=== PATIENT | male | born 1955 | race Caucasian/White ===

== ENCOUNTER 2024-04-06 02:28 | Inpatient (IN) | payer MEDICARE, OTHER, SELFPAY ==
[2024-04-05 23:53] VITALS: BP 153/85
[2024-04-06] VITALS (13 sets, daily range): BP systolic 106–152; BP diastolic 55–88; BMI 23.5; BMI 23.2
--- NOTE | 2024-04-06 00:23 | ED.GENMED ---
History of Present Illness
General
Chief Complaint: Rectal Bleeding
Source: patient and spouse
Time Seen by Provider: 04/06/24 00:13
History of Present Illness
History of Present Illness:
68-year-old male with past medical history of hyperlipidemia, diverticular bleed 6 months ago which was repaired with 2 clips at [facility] presenting to the emergency department for evaluation after experiencing some lower abdominal
discomfort earlier this evening and then proceeded to have 1 episode of loose stool intermixed with bright red blood. Patient states that he became concerned due to the last time he had this GI bleeding which ultimately required him having 7 units
of packed red blood cells transfused and proceeded to syncopized and reports may have undergone cardiac arrest due to hypovolemic shock. Patient reports that since his discharge from the hospital 6 months ago he has been doing well without any
issues. Presently still notes the slight discomfort in the lower abdomen but otherwise asymptomatic. Denies any lightheadedness/dizziness/weakness/fatigue, fevers or infectious symptoms, urinary symptoms, abnormal bruising, abnormal weight loss or
gain. Social history was noted for an occasional alcoholic beverage but otherwise unremarkable.
Past History
Past History
ED Past Medical History: Hypercholesterolemia and Other (Diverticulosis with previous diverticular bleed)
ED Past Surgical History: Other
Social History
Tobacco: Non-smoker
Alcohol: Occasional
Drug: None
Personal:
Living: with family
Review of Systems
Review of Systems
All Other Systems: ROS reviewed and negative except as documented in HPI and ROS
Phy Exam
Physical Exam
Physical Exam:
GENERAL: Alert , in no apparent distress
EYE: clear conjunctiva b/l
HEAD: NCAT
ENT: mmm.
CARDIAC: Regular rate and rhythm .
LUNGS: Clear breath sounds bilaterally, no acute respiratory distress, no wheezes/rales/rhonchi
ABDOMEN: Soft, without focal tenderness, no r/g, no cvat
RECTAL EXAM: Chaperoned by ED ESME Guzman -no stool but there is bright red blood, no external hemorrhoids
NEUROLOGICAL: Alert and oriented
SKIN: Warm and dry, skin intact.
MUSCULOSKELETAL:, well perfused.
PSYCH: Normal and appropriate interaction.
Scores
Heart Failure Risk
Heart Failure Risk Score: Not Applicable
Heart Score for Chest Pain Patients
STEMI patient?: Not applicable
Withdrawal Assessment of Alcohol
Withdrawal Assessment Completed?: Not applicable
Course
Orders/Labs/Results
Orders:
Orders
04/06/24 00:29
Type+Screen Urgent
Complete Blood Count/With Diff Urgent
Comprehensive Metabolic Panel Urgent
PTT Urgent
Prothrombin Time Urgent
04/06/24 01:09
ABO2 Urgent
BBK Wristband Number:
Associate notified that ABO2 has been ordered: [id number]
Date: 04/06/24
Time: 00:45
Dike Supervisor ID: [id number]
Abnormal Lab Results
04/06/24
00:29
RBC 4.08 L 10^6/uL
(4.70-6.10)
Hgb 12.3 L g/dL
(13.0-18.0)
Hct 38.0 L %
(39.0-52.0)
MCHC 32.4 L g/dL
(33.0-37.0)
BUN 26 H mg/dl
(9-20)
Glucose 110 H mg/dl
(70-99)
Total Bilirubin 0.1 L mg/dl
(0.2-1.3)
04/06/24 00:29
04/06/24 00:29
Vital Signs
Initial and Last Documented VS:
Initial Vital Signs
Temp Pulse Resp BP Pulse Ox
98.7 F 84 16 153/85 100
04/05/24 23:53 04/05/24 23:53 04/05/24 23:53 04/05/24 23:53 04/05/24 23:53
Last Documented Vital Signs
Temp Pulse Resp BP Pulse Ox
98.7 F 78 13 130/85 98
04/05/24 23:53 04/06/24 01:15 04/06/24 01:15 04/06/24 01:00 04/06/24 01:15
MDM/Problems Addressed
Differential Diagnosis Includes:
Diverticular bleed, internal hemorrhoids, less concern for an upper GI bleeding source, anemia
MDM/Problems Addressed:
68-year-old male presenting to the emergency department for evaluation of some mild ralf discomfort associated with 1 episode of bright red blood during a bowel movement earlier this evening. Recent history of a diverticular bleed status post
clipping done at [facility]. Patient needed significant amount of blood products during that time. Currently hemodynamically stable and in no acute distress. Will check labs. Patient advised if he is to have any further bleeding to notify staff so
we can obtain a stat CT angio of the abdomen to see if there is any identified areas of bleeding. Anticipate admission given his recent history for hemoglobin trending and close monitoring.
*Pulse Oximetry
Patient hypoxic: no
*Gravel Screener Interpretation
Rate: normal
Rhythm: sinus
*Critical Care Note
Total Time (30-74mins, 75-104mins- exclusive of procedures): Not Applicable
Patient Management
Discussion with other providers: Hospitalist
Escalation/DeEscalation of care consider admission/obs:
Patient's lab work so far is reassuring with a hemoglobin of 12.3. He remains hemodynamically stable. He still reports that he has some mild discomfort in the lower part of his abdomen. Given his recent medical history with the previous GI bleed
requiring significant amount of transfusion I do believe it would be in patient's best interest to be admitted and observed with repeat labs in the morning. Patient and are in agreement with this plan. Hospitalist team accepts for continued
evaluation and treatment.
ED Attending Note
-
Portions of this chart may have been created with voice recognition software.� Occasional wrong word or��sound alike� substitutions may have occurred due to the inherent limitations of voice recognition software.
Discharge Plan
Departure
Patient Disposition: Admit
Date of Disposition: 04/06/24
Time of Disposition: 01:18
Presentation/result/management discussed w/ accepting MD/DO: Hospitalist
Discharge Problem:
Acute gastrointestinal bleeding
Referrals:
UNKNOWN - PT DOES,NOT KNOW [Family Provider] -
Interventions
Interventions:
*Risk Screen - Suicide Last Done: 04/06/24 00:28
*General Assessment Last Done: 04/05/24 23:53
*Neglect/Abuse Screening Last Done: 04/06/24 00:28
ED- Fall Risk Assessment Last Done: 04/06/24 00:33
*ED COVID-19 Vaccine History Last Done: 04/05/24 23:53
MY-Igbxvf-Bknhbhpejf Assessment Last Done: 04/06/24 00:31
ED- Cardiac Assessment Last Done: 04/06/24 00:31
ED- Pulmonary Assessment Last Done: 04/06/24 00:31
Discharge Date and Time
Print Language: MONTSERRATIAN
[2024-04-06 00:54] LABS: % Basophils 0.6 % (0-2); % Immature Granulocytes 0.4 % (0-0.5); % Lymphocytes 32.7 % (20.5-51.1); % Monocytes 9.3 % (1.7-9.3); Absolute Eosinophils 0.1 10^3/uL (0-0.7); Absolute Lymphocytes 1.8 10^3/uL (1.2-3.4); Absolute Monocytes 0.5 10^3/uL (0.1-0.6); Hemoglobin 12.3 g/dL (13.0-18.0); Mean Corp Hgb Conc. 32.4 g/dL (33.0-37.0); Mean Corpuscular Hgb 30.1 pg (27.0-31.0); Mean Corpuscular Volume 93.1 fL (80.0-94.0); Mean Platelet Volume 10.3 fL (7.4-10.4); Nucleated Red Blood Cells % 0 % (-); Platelet Count 183 10^3/uL (130-400); Red Blood Cell Count 4.08 10^6/uL (4.70-6.10); Red Cell Dist. Width 13.4 % (11.5-14.5); White Blood Cell Count 5.4 10^3/uL (4.8-10.8)
[2024-04-06 00:56] LABS: ALT (SGPT) 23 U/L (0-50); AST (SGOT) 27 U/L (17-59); Albumin 4.3 g/dl (3.5-5.0); Alkaline Phosphatase 93 U/L (38-126); Blood Urea Nitrogen 26 mg/dl (9-20); Calcium 9.1 mg/dl (8.4-10.2); Carbon Dioxide 28 mmol/L (22-30); Chloride 102 mmol/L (98-107); Estimated Creatinine Clearance 64 ml/min; Glucose 110 mg/dl (70-99); Potassium 4.5 mmol/L (3.5-5.1); Sodium 139 mmol/L (135-145); Total Bilirubin 0.1 mg/dl (0.2-1.3); Total Protein 6.3 g/dl (6.3-8.2); eGFR > 60.00
[2024-04-06 00:57] LABS: PT 13.7 Sec (11.4-14.6)
[2024-04-06 00:58] LABS: APTT 31.1 Sec (23.4-35.0)
--- NOTE | 2024-04-06 02:03 | HPS.HSE ---
Family Physician
-
Family Physician: NOT KNOW UNKNOWN - PT DOES
Chief Complaint
-
Bright red blood per rectum
History of Present Illness
This is a 68-year-old male with past medical history of diverticular bleed 6 months ago presents to the emergency department with episode of bloody bowel movement that started approximately 3 hours prior to arrival in the ED.
Patient reports that he had an episode of rectal bleeding about 6 months ago. He required several units of packed red blood cells and ultimately had a colonoscopy and had 2 clips placed in the descending colon/sigmoid colon for treatment. He has
not had no episodes since then. Patient has not had any follow-up colonoscopy or surgery. He denies any prior bleeding. He is not currently taking any NSAIDs, aspirin or blood thinners. Patient reports sudden onset of symptoms without any
prodromal abdominal pain nausea or vomiting. He denies fevers or chills. He reported that he had a bowel movement after dinner that was frankly bloody and continued to have some abdominal gurgling and given his prior history decided to come to the
ED. He denies feeling lightheaded or dizzy. He denies having any chest pain or palpitations.
In the ED the patient was afebrile, blood pressure was stable at 130/83 with a pulse of 78. He is hemoglobin was 12.3 INR was 1.0 electrolytes BUN/creatinine were within normal limits.
Medical History
Past Medical History
Past Medical History: Reports Hypercholesterolemia and Other (Diverticulosis, diverticular bleeding)
Past Surgical History: Reports Other (Bilateral hernia repairs)
Social History
Tobacco: Non-smoker
Alcohol: Occasional
Drug: None
Personal:
Living: With Family
Family History
Family History: Not pertinent
Allergies / Home Medications
Allergies reflects when Allergies were last updated in [facility].
Home Medications with original date entered in [facility]
Allergy/Medication List:
Allergies
Allergy/AdvReac Type Severity Reaction Status Date / Time
aspirin Allergy Unknown Verified 04/05/24 23:59
Atorvastatin 10mg tablet, 10mg by mouth daily
Review of Systems
-
History Source: Patient and Family
Constitutional: Reports No Symptoms
EENT: Reports No Symptoms
Respiratory: Reports No Symptoms
Cardiac: Reports No Symptoms
Abdomen/GI: Reports Bloody Stools
: Reports No Symptoms
Musculoskeletal: Reports No Symptoms
Skin: Reports No Symptoms
Neurological: Reports No Symptoms
Endocrine: Reports No Symptoms
Hematologic/Lymphatic: Reports No Symptoms
Psych: Reports No Symptoms
Physical Exam
Vital Signs
Vital Signs
Temp Pulse Resp BP Pulse Ox
98.7 F 75 11 152/86 97
04/05/24 23:53 04/06/24 01:45 04/06/24 01:45 04/06/24 01:30 04/06/24 01:45
Physical Exam
General: Well Developed, Well Nourished, No Apparent Distress and Comfortable
HEENT: NormoCephalic, Anicteric, Moist mucous membranes and Atraumatic
Respiratory: Clear
Cardiac: S1/S2 and Regular Rhythm
Breast: Deferred by me
GI: Soft, Non Tender, Non Distended and Normal Bowel Sounds
Rectal: Red
Genito-urinary: Deferred by me
Musculoskeletal: No Clubbing, No Cyanosis and No Edema
Skin: Warm
Neuro: AO x 3
Hematologic/Lymphatic: No Lymphadenopathy
Psych: Calm
Laboratory Results
-
04/06/24 00:29
04/06/24 00:29
Laboratory Results
PT 13.7 Sec (11.4-14.6) 04/06/24 00:29
INR 1.00 04/06/24 00:29
APTT 31.1 Sec (23.4-35.0) 04/06/24 00:29
Total Bilirubin 0.1 mg/dl (0.2-1.3) L 04/06/24 00:29
AST 27 U/L (17-59) 04/06/24 00:29
ALT 23 U/L (0-50) 04/06/24 00:29
Alkaline Phosphatase 93 U/L (38-126) 04/06/24 00:29
Data Reviewed
-
Old Records: Reviewed
Impression/Plan
-
IMPRESSION:
68-year-old with history of diverticular bleeding and hemorrhoids presents to the emergency department with 1 episode of bloody bowel movement. In the ED he was found to have nathan blood in the vault without any stool. Has been with diarrhea. No
signs of acute infection. Patient is not on any anticoagulants or antiplatelets. Had a history of diverticular bleed 6 months ago for which she presented at [facility] and required 7 units of blood transfusion and colonoscopy with placement
of clips.
PLAN:
1. Rectal bleeding - Given past history, suggest diverticular bleed. HD stable. Hgb 12.3. No tachycardia. No bleeding since first episode but BM appears pendings.
- admit to telemetry
- if repeat episode of blood bm, will get CT GI bleeding scan
- NPO for now with clear ok
- trend h/h
- type and screen
- GI consult in am
DVT PPX - SCDs
Code Status - Full Code
--- NOTE | 2024-04-06 03:48 | VATNOTE ---
PT STABLE AT THIS TIME WITH H/H 12.3/38.1. NO IV THERAPY REQUIRING MORE THAN ONE IV ACCESS. VAT TO MONITOR.
[2024-04-06] MEDS: D5/0.45%NACL 1000 IV (04:18)
[2024-04-06 05:59] LABS: Hematocrit 35.8 % (39.0-52.0); Hemoglobin 12.1 g/dL (13.0-18.0); Mean Corp Hgb Conc. 33.8 g/dL (33.0-37.0); Mean Corpuscular Hgb 31.3 pg (27.0-31.0); Mean Corpuscular Volume 92.5 fL (80.0-94.0); Mean Platelet Volume 10.8 fL (7.4-10.4); Platelet Count 175 10^3/uL (130-400); Red Blood Cell Count 3.87 10^6/uL (4.70-6.10); Red Cell Dist. Width 13.4 % (11.5-14.5); White Blood Cell Count 6.8 10^3/uL (4.8-10.8)
[2024-04-06 06:27] LABS: Blood Urea Nitrogen 22 mg/dl (9-20); Calcium 8.8 mg/dl (8.4-10.2); Carbon Dioxide 26 mmol/L (22-30); Chloride 104 mmol/L (98-107); Estimated Creatinine Clearance 71 ml/min; Glucose 116 mg/dl (70-99); Potassium 4.9 mmol/L (3.5-5.1); Sodium 141 mmol/L (135-145); eGFR > 60.00
--- NOTE | 2024-04-06 10:06 | CON.GI ---
Addendum entered and electronically signed by JESSY Salgado 04/06/24 16:06:
Saw patient for a second time as he was concerned about his bleeding. He has had 1 BM that was brown mixed with blood followed by 2 more which were approximately 400 cc. Patient just had a smear of BRB. Patient is without any pain. VSS. Hgb 11.1.
Discussed with patient while in the room with Auditor/Quality. CTA from [place] obtained with prior positive CTA in hepatic flexure, however attempted IR intervention without active bleed. Will obtain [facility] records as he states he 'Coded twice'.
Obtained blood consent now, obtained IV team for second line, patient already has 18g in left forearm. Will get type and screeen in case blood products necessary. RN is already measuring all BM/bleeding. Hgb q 6 hrs. Will order CTA if with active
bleeding.
Addendum entered and electronically signed by Mehnaz Weaver Do, MD 04/06/24 12:40:
I saw and examined the patient.
The STAFF PSYCHIATRIST's note was reviewed and I agree with the note.
Comment: Dima is a 68yo M with h/o HTN and diverticular bleeding 09/2023 s/p 7units PRBC transfusion who presents for recurrent painless hematochezia. Did lift heavy groceries day prior. He does have h/o constipation for which he uses fiber daily
basis. Vitals stable. Exam NTTP, NABS. Labs reviewed stable Hbg 12 to 12.
Impression
- Painless hematochezia
ddx includes diverticular, hemorrhoidal vs ectasia
- Constipation
- Hyperlipidemia
Recommendations
- Serial H/H
- Monitor stool output
- >80% of diverticular bleeding resolves without intervention
- 2 large bore IVs
- Given stability of Hbg would observe. If there is hemodynamic instability and or more significant bloody output consider CTA vs repeat colonoscopy
Will follow with you. Above d/w hospitalist and RN
Original Note:
Consultation
-
Date/Time Consultation Requested: 04/06/2024 0341
Date/Time Consultation Performed: 04/06/2024 1007
Requesting Provider: Dr. Garcia
Performing Provider: Dr. Kramer/JESSY Maloney
Reason for Consultation: Rectal Bleed
Medical History
Chief Complaint / HPI
Chief Complaint: Rectal bleed
History of Present Illness:
68-year-old man with past medical history of hyperlipidemia, diverticular bleed (September 2023 [facility]) otherwise healthy presents to the emergency room last evening with episode of brown loose stools with bright red blood. Asked to evaluate
for the same. The patient states that he was hospitalized at [facility] in September 2023 after having episode of abdominal cramping with bright red blood. At that time he required multiple blood transfusions and colonoscopy performed at
that time that showed blood within the entire colon. Edema in the ileocecal valve that was biopsied. Inverted diverticula with possible bleeding stigmata that was clipped in the ascending colon. Moderate diverticulosis throughout the entire
colon. The patient states he was discharged and his hemoglobin was improved. He does not know the results of his hemoglobin after discharge. He states he had uneventful issues over the summer. Yesterday he was grocery shopping and was lifting
heavy groceries as well as caring a ham and turkey at the same time. Last evening he had dinner and he woke up around 11 PM with the urge to have a bowel movement. He states this was loose brown stool with bright red blood. He has had no episodes
since. He had no urgency no abdominal pain no chest pain no shortness of breath or diaphoresis. He has no further episodes of bleeding. Rectal exam in the ER was gross red blood. Rectal exam by me showed external and internal hemorrhoids. The
external hemorrhoids had no stigmata of recent bleeding. Rectal exam did show some old blood within the rectal canal. He states that he had no episodes of bleeding overnight or with wiping. Hemoglobin has remained completely stable. He has been
tolerating clear liquid diet without any issues. He states his last colonoscopy was approximately 3 years ago in [facility] He states he has never had any polyps. He is no family history of gastrointestinal malignancy. He takes no NSAIDs.
Past Medical History
Past Medical History: Hypercholesterolemia and Other (Lower GI bleed (09/2023_)
Past Surgical History: Other (Bilateral hernia repair)
Social History
Tobacco: Non-Smoker
Alcohol: Occasional (2-3 alcoholic beverages a week)
Drug: None
Personal:
Living: With Family
Family History
Family History: Other (No family history gastrointestinal malignancy or IBD)
Allergies / Home Medications
Allergy/AdvReac Type Severity Reaction Status Date / Time
aspirin Allergy Unknown Verified 04/05/24 23:59
Review of Systems
-
All other systems: A 12 pt ROS was Negative except as stated above in HPI
Vital Signs
Temp Pulse Resp BP Pulse Ox
98.5 F 73 16 128/72 99
04/06/24 07:30 04/06/24 07:30 04/06/24 07:30 04/06/24 07:30 04/06/24 07:30
Physical Exam
Exam
General: No Apparent Distress
HEENT: Anicteric
Respiratory: Clear
Cardiac: Regular Rhythm
GI: Soft, Non Tender, Non Distended and Normal Bowel Sounds
Rectal: Red (Internal/external hemorrhoids. No stigmata of recent bleeding with external hemorrhoids. Gross blood on rectal exam, small amount appears old)
Musculoskeletal: No Edema
Skin: Warm and Dry
Neuro: AO x 3
Psych: Calm
Results
WBC 6.8 10^3/uL (4.8-10.8) 04/06/24 05:34
Hgb 12.1 g/dL (13.0-18.0) L 04/06/24 05:34
Hct 35.8 % (39.0-52.0) L 04/06/24 05:34
MCV 92.5 fL (80.0-94.0) 04/06/24 05:34
Plt Count 175 10^3/uL (130-400) 04/06/24 05:34
Absolute Neuts (auto) 3.0 10^3/uL (1.4-6.5) 04/06/24 00:29
PT 13.7 Sec (11.4-14.6) 04/06/24 00:29
INR 1.00 04/06/24 00:29
APTT 31.1 Sec (23.4-35.0) 04/06/24 00:29
Sodium 141 mmol/L (135-145) 04/06/24 05:34
Potassium 4.9 mmol/L (3.5-5.1) 04/06/24 05:34
Chloride 104 mmol/L (98-107) 04/06/24 05:34
Carbon Dioxide 26 mmol/L (22-30) 04/06/24 05:34
BUN 22 mg/dl (9-20) H 04/06/24 05:34
Creatinine 0.9 mg/dL (0.7-1.3) 04/06/24 05:34
Calcium 8.8 mg/dl (8.4-10.2) 04/06/24 05:34
Total Bilirubin 0.1 mg/dl (0.2-1.3) L 04/06/24 00:29
AST 27 U/L (17-59) 04/06/24 00:29
ALT 23 U/L (0-50) 04/06/24 00:29
Alkaline Phosphatase 93 U/L (38-126) 04/06/24 00:29
Diagnostic Image Results:
None
Prior GI Procedures:
EGD: Never had
Colonoscopy: 09/2023 [facility]: Blood in entire colon. Edema in the ileocecal valve this was biopsied. Inverted diverticulum with possible bleeding stigmata clipped and ascending colon. Moderate diverticulosis in the entire colon.
Prior colonoscopy approximately 3 years ago in [facility] Per patient report negative. Was told 10-year recall.
Assessment / Plan
-
68-year-old man with past medical history of hyperlipidemia, diverticular bleed (September 2023 [facility]) otherwise healthy presents to the emergency room last evening with episode of brown loose stools with bright red blood. Asked to evaluate
for the same. The patient states that he was hospitalized at [facility] in September 2023 after having episode of abdominal cramping with bright red blood. At that time he required multiple blood transfusions and colonoscopy performed at
that time that showed blood within the entire colon. Edema in the ileocecal valve that was biopsied. Inverted diverticula with possible bleeding stigmata that was clipped in the ascending colon. Moderate diverticulosis throughout the entire
colon. The patient states he was discharged and his hemoglobin was improved. He does not know the results of his hemoglobin after discharge. Patient has soft formed bowel movements daily without any issues with constipation. Rectal exam in the
ER was gross red blood. Rectal exam by me showed external and internal hemorrhoids. The external hemorrhoids had no stigmata of recent bleeding. Rectal exam did show some old blood within the rectal canal. He states that he had no episodes of
bleeding overnight or with wiping. Hemoglobin has remained completely stable. He has been tolerating clear liquid diet without any issues. He states his last colonoscopy was approximately 3 years ago in [facility] He states he has never had
any polyps. He is no family history of gastrointestinal malignancy. He takes no NSAIDs. WBC 6.8, hemoglobin 12.1 (down from 12.3), hematocrit 35.8, platelets 175 PT 13.7 INR 1.0, sodium 141, potassium 4.9, BUN 22, creatinine 0.9, glucose 116 LFTs
within normal limits. No imaging.
Impression:
Rectal bleeding, differentials include diverticular versus hemorrhoidal
Plan:
-Hemoglobin stable, repeat at 2 PM
-Continue clear liquids, if stable and no signs of bleeding consider advancement this afternoon
-Anusol suppositories for internal and external hemorrhoids
-Further recommendations to be forthcoming.
-
-
Thank you for consultation and allowing me to participate in the patient's care. Please call the front end driver GI physician during the after hours with any questions or concerns.
--- NOTE | 2024-04-06 11:22 | CM ---
Reviewed the chart notes and spoke with the patient at the bedside. The patient resides with his spouse in a two story home with three steps to enter. The patient reports no DME/VN/SNF in the past. The patient confirmed his pharmacy of choice is
the [facility] Roland. JONO continues to be available to patient/family and is monitoring medical plan for needs at discharge.
Plan: Discharge to home when medically stable. No needs anticipated.
--- NOTE | 2024-04-06 12:17 | W.PN.HOSP.TC ---
Today's Communication/Plan
-
Monitor CBC q12h; trend CBC; transfuse for HgB goal >7
GI recs
Assessment / Plan
Assessment / Plan
Physical Exam
General: Well Developed, Well Nourished, No Apparent Distress and Comfortable
HEENT: NormoCephalic, Anicteric, Moist mucous membranes and Atraumatic
Respiratory: Clear
Cardiac: S1/S2 and Regular Rhythm
Breast: Deferred by me
GI: Soft, Non Tender, Non Distended and Normal Bowel Sounds
Rectal: Red
Genito-urinary: Deferred by me
Musculoskeletal: No Clubbing, No Cyanosis and No Edema
Skin: Warm
Neuro: AO x 3
Hematologic/Lymphatic: No Lymphadenopathy
Psych: Calm
68-year-old with history of diverticular bleeding and hemorrhoids presents to the emergency department with 1 episode of bloody bowel movement. In the ED he was found to have nathan blood in the vault without any stool. Has been with diarrhea. No
signs of acute infection. Patient is not on any anticoagulants or antiplatelets. Had a history of diverticular bleed 6 months ago for which she presented at [facility] and required 7 units of blood transfusion and colonoscopy with placement
of clips.
PLAN:
1. Rectal bleeding - Given past history, suggest diverticular bleed.
-repeated occurrence this am
-monitor cbc q12h
-NPO for now - adv if stable hgb
- type and screen
- GI consulted - they want to hold scoping at this time - as had Scope in September - will cont monitoring
-Maintain MAP greater than 65
� Maintain hemoglobin greater than 7; transfuse as necessary
� 2 large IV bores
#HLD
-npo
DVT PPX - SCDs
Code Status - Full Code
Total time spent on today's encounter was 50 minutes which included time spent in counseling the patient/family regarding diagnosis and treatment plan as listed above, goals of care, and symptom management. Case was discussed with nursing staff,
specialists, and care coordinators/case management. All labs and imaging personally reviewed by me. Remainder the time spent in detailed review of previous records, lab data, imaging, and other medical provider documentation.
Anticipated Discharge: 24 - 48 hours
Subjective/Interval History
-
Date of Service: April 06, 2024
Had bloody bowel movement this morning
Objective Data
-
Labs:
Laboratory Results
04/06/24 04/06/24 04/06/24
00:29 05:34 12:12
WBC 5.4 6.8 Pending
Hgb 12.3 L 12.1 L Pending
Hct 38.0 L 35.8 L Pending
Plt Count 183 175 Pending
PT 13.7
INR 1.00
APTT 31.1
Sodium 139 141
Potassium 4.5 4.9
Chloride 102 104
Carbon Dioxide 28 26
BUN 26 H 22 H
Creatinine 1.0 0.9
Glucose 110 H 116 H
Calcium 9.1 8.8
Total Bilirubin 0.1 L
AST 27
ALT 23
Alkaline Phosphatase 93
04/06/24
14:00
WBC
Hgb Pending
Hct Pending
Plt Count
PT
INR
APTT
Sodium
Potassium
Chloride
Carbon Dioxide
BUN
Creatinine
Glucose
Calcium
Total Bilirubin
AST
ALT
Alkaline Phosphatase
Vital Signs:
Vital Signs
Temp Pulse Resp BP Pulse Ox
98.5 F 73 16 128/72 99
04/06/24 07:30 04/06/24 07:30 04/06/24 07:30 04/06/24 07:30 04/06/24 07:30
I&O
04/05/24 04/06/24 04/07/24
06:59 06:59 06:59
Intake Total 150 / 150
Balance 150 / 150
Review of Systems
-
History Source: Patient
All other systems: Not reviewed unless documented
Physical Exam
-
General: Well Developed and Well Nourished
HEENT: Normocephalic
Respiratory: Clear to Auscultation
Cardiac: Regular Rhythm
GI: Soft, Nontender and Nondistended
Genito-urinary: No Costovertebral Tender
Musculoskeletal: No Clubbing
Skin: Warm
Neuro: Awake, Alert, Oriented and AO x 3
Hematologic / Lymphatic: No Lymphadenopathy
Psych: Calm
Data Reviewed
-
Labs: Labs Reviewed by me
[2024-04-06 14:07] LABS: % Basophils 0.2 % (0-2); % Eosinophils 0.8 % (0-6); % Immature Granulocytes 0.4 % (0-0.5); % Lymphocytes 21.7 % (20.5-51.1); % Monocytes 9.4 % (1.7-9.3); % Neutrophils 67.5 % (42.2-75.2); Absolute Lymphocytes 1.2 10^3/uL (1.2-3.4); Absolute Monocytes 0.5 10^3/uL (0.1-0.6); Absolute Neutrophils 3.6 10^3/uL (1.4-6.5); Hematocrit 33.8 % (39.0-52.0); Hemoglobin 11.2 g/dL (13.0-18.0); Mean Corp Hgb Conc. 33.1 g/dL (33.0-37.0); Mean Corpuscular Hgb 30.6 pg (27.0-31.0); Mean Corpuscular Volume 92.3 fL (80.0-94.0); Mean Platelet Volume 10.4 fL (7.4-10.4); Nucleated Red Blood Cells % 0 % (-); Platelet Count 178 10^3/uL (130-400); Red Blood Cell Count 3.66 10^6/uL (4.70-6.10); Red Cell Dist. Width 13.5 % (11.5-14.5); White Blood Cell Count 5.3 10^3/uL (4.8-10.8)
[2024-04-07 02:05] LABS: Hematocrit 30.5 % (39.0-52.0); Hemoglobin 10.1 g/dL (13.0-18.0); Mean Corp Hgb Conc. 33.1 g/dL (33.0-37.0); Mean Corpuscular Hgb 30.6 pg (27.0-31.0); Mean Corpuscular Volume 92.4 fL (80.0-94.0); Mean Platelet Volume 10.8 fL (7.4-10.4); Platelet Count 165 10^3/uL (130-400); Red Cell Dist. Width 13.7 % (11.5-14.5); White Blood Cell Count 6.3 10^3/uL (4.8-10.8)
[2024-04-07 03:03] VITALS: BP 103/71
[2024-04-07 06:49] LABS: Hematocrit 28.1 % (39.0-52.0); Hemoglobin 9.9 g/dL (13.0-18.0); Mean Corp Hgb Conc. 35.2 g/dL (33.0-37.0); Mean Corpuscular Hgb 31.1 pg (27.0-31.0); Mean Corpuscular Volume 88.4 fL (80.0-94.0); Mean Platelet Volume 11.1 fL (7.4-10.4); Platelet Count 151 10^3/uL (130-400); Red Blood Cell Count 3.18 10^6/uL (4.70-6.10); Red Cell Dist. Width 13.5 % (11.5-14.5); White Blood Cell Count 5.7 10^3/uL (4.8-10.8)
[2024-04-07 07:18] LABS: ALT (SGPT) 18 U/L (0-50); AST (SGOT) 24 U/L (17-59); Albumin 3.3 g/dl (3.5-5.0); Alkaline Phosphatase 54 U/L (38-126); Blood Urea Nitrogen 22 mg/dl (9-20); Calcium 8.7 mg/dl (8.4-10.2); Carbon Dioxide 25 mmol/L (22-30); Chloride 107 mmol/L (98-107); Estimated Creatinine Clearance 71 ml/min; Glucose 91 mg/dl (70-99); Potassium 4.1 mmol/L (3.5-5.1); Sodium 141 mmol/L (135-145); Total Bilirubin 0.5 mg/dl (0.2-1.3); Total Protein 5.2 g/dl (6.3-8.2); eGFR > 60.00
[2024-04-07 07:55] VITALS: BP 100/60
[2024-04-07 10:44] VITALS: BP 107/67
[2024-04-07 11:07] LABS: Iron 67 ug/dl (49-181)
[2024-04-07 11:13] LABS: Percent Saturation 21 % (20-50); Total Iron Binding Capacity 315 ug/dl (261-462)
--- NOTE | 2024-04-07 11:44 | W.PN.GI.CBS2 ---
Addendum entered and electronically signed by Mehnaz Weaver Do, MD 04/07/24 12:11:
I saw and examined the patient.
The NETWORK ADMIN's note was reviewed and I agree with the note.
Comment: Dima had one small smear of stool yesterday afternoon. Denies LH/dizziness. Denies abd pain. Vitals stable. Exam NTTP, NABS. Labs reviewed Hbg down.
Plan:
- CLD now
- NPO at [facility] for colonoscopy tomorrow
- Serial H/H
- Monitor stool output
Will follow with you
Original Note:
Today's Communication / Plan
-
As per plan
Assessment / Plan
-
68-year-old man with past medical history of hyperlipidemia, diverticular bleed (September 2023 [facility]) otherwise healthy presents to the emergency room last evening with episode of brown loose stools with bright red blood. Asked to evaluate
for the same. The patient states that he was hospitalized at [facility] in September 2023 after having episode of abdominal cramping with bright red blood. At that time he required multiple blood transfusions and colonoscopy performed at
that time that showed blood within the entire colon. Edema in the ileocecal valve that was biopsied. Inverted diverticula with possible bleeding stigmata that was clipped in the ascending colon. Moderate diverticulosis throughout the entire
colon. The patient states he was discharged and his hemoglobin was improved. He does not know the results of his hemoglobin after discharge. Patient has soft formed bowel movements daily without any issues with constipation. Rectal exam in the
ER was gross red blood. Rectal exam by me showed external and internal hemorrhoids. The external hemorrhoids had no stigmata of recent bleeding. Rectal exam did show some old blood within the rectal canal. He states that he had no episodes of
bleeding overnight or with wiping. Hemoglobin has remained completely stable. He has been tolerating clear liquid diet without any issues. He states his last colonoscopy was approximately 3 years ago in [facility]. He states he has never had
any polyps. He is no family history of gastrointestinal malignancy. He takes no NSAIDs. WBC 6.8, hemoglobin 12.1 (down from 12.3), hematocrit 35.8, platelets 175 PT 13.7 INR 1.0, sodium 141, potassium 4.9, BUN 22, creatinine 0.9, glucose 116 LFTs
within normal limits. No imaging.
Impression:
Rectal bleeding, differentials include diverticular, most likely
--> Drop in hemoglobin from 12.1 down to 9.9 this morning
Plan:
-Continue to monitor hemoglobin
-Transfuse if necessary, consent has been signed. Type and cross has been obtained.
-Start prep for planned colonoscopy tomorrow.
-CBC, BMP in a.m.
Subjective
Subjective
Date of Service: April 07, 2024
Patient with small episode of bleeding overnight. Hemoglobin has decreased. Without any signs of near syncope or abdominal pain. Vital signs stable. Patient agreeable for colonoscopy tomorrow if warranted. Will start prepping.
Objective
Data Reviewed
Laboratory Data:
Laboratory Results
04/07/24 06:22
Laboratory Results
PT 13.7 Sec (11.4-14.6) 04/06/24 00:29
INR 1.00 04/06/24 00:29
APTT 31.1 Sec (23.4-35.0) 04/06/24 00:29
Total Bilirubin 0.5 mg/dl (0.2-1.3) 04/07/24 06:22
AST 24 U/L (17-59) 04/07/24 06:22
ALT 18 U/L (0-50) 04/07/24 06:22
Alkaline Phosphatase 54 U/L (38-126) 04/07/24 06:22
Vital Signs and I&O:
Vital Signs
Temp Pulse Resp BP Pulse Ox
98.4 F 76 16 107/67 98
04/07/24 10:44 04/07/24 10:44 04/07/24 10:44 04/07/24 10:44 04/07/24 10:44
I&O
04/06/24 04/07/24 04/08/24
06:59 06:59 06:59
Intake Total 150 / 150
Output Total 650 / 650
Balance -500 / -500
Physical Exam
Physical Exam
HEENT: Anicteric
Cardiology: Normal Sinus Rhythm
Pulmonary: Clear
GI: Soft, Non Distended, Non Tender and Normal Bowel Sounds
Extremities: No Edema
Neuro: Non Focal
[2024-04-07] MEDS: DULCOLAX 10 MG PO (11:51)
[2024-04-07 11:54] LABS: Ferritin 37.9 ng/ml (17.9-464.0)
[2024-04-07 12:23] LABS: Hematocrit 30.5 % (39.0-52.0); Hemoglobin 10.3 g/dL (13.0-18.0); Mean Corp Hgb Conc. 33.8 g/dL (33.0-37.0); Mean Corpuscular Hgb 31.3 pg (27.0-31.0); Mean Corpuscular Volume 92.7 fL (80.0-94.0); Mean Platelet Volume 10.5 fL (7.4-10.4); Platelet Count 173 10^3/uL (130-400); Red Blood Cell Count 3.29 10^6/uL (4.70-6.10); Red Cell Dist. Width 13.5 % (11.5-14.5); White Blood Cell Count 5.4 10^3/uL (4.8-10.8)
[2024-04-07 12:25] LABS: Folate > 20.0 ng/ml (2.76-20); Vitamin B12 426 pg/ml (239-931)
[2024-04-07] MEDS: NULYTELY SOLUTION 4 LITERS PO (12:49)
--- NOTE | 2024-04-07 13:51 | W.PN.HOSP.TC ---
Today's Communication/Plan
-
Clinical diet
N.p.o. at midnight for colonoscopy
Monitor hemoglobin
Assessment / Plan
Assessment / Plan
Physical Exam
General: Well Developed, Well Nourished, No Apparent Distress and Comfortable
HEENT: NormoCephalic, Anicteric, Moist mucous membranes and Atraumatic
Respiratory: Clear
Cardiac: S1/S2 and Regular Rhythm
Breast: Deferred by me
GI: Soft, Non Tender, Non Distended and Normal Bowel Sounds
Rectal: Red
Genito-urinary: Deferred by me
Musculoskeletal: No Clubbing, No Cyanosis and No Edema
Skin: Warm
Neuro: AO x 3
Hematologic/Lymphatic: No Lymphadenopathy
Psych: Calm
68-year-old with history of diverticular bleeding and hemorrhoids presents to the emergency department with 1 episode of bloody bowel movement. In the ED he was found to have nathan blood in the vault without any stool. Has been with diarrhea. No
signs of acute infection. Patient is not on any anticoagulants or antiplatelets. Had a history of diverticular bleed 6 months ago for which she presented at [facility] and required 7 units of blood transfusion and colonoscopy with placement
of clips.
PLAN:
1. Rectal bleeding - Given past history, suggest diverticular bleed.
-repeated occurrence this am
-monitor cbc q12h
-Clinical diet, n.p.o. midnight for colonoscopy
- type and screen
-Maintain MAP greater than 65
� Maintain hemoglobin greater than 7; transfuse as necessary
� 2 large IV bores
#HLD
-npo
DVT PPX - SCDs
Code Status - Full Code
Anticipated Discharge: 24 - 48 hours
Subjective/Interval History
-
Date of Service: April 07, 2024
Total 5 bloody bowel movements yesterday, none after yesterday evening
Objective Data
-
Labs:
Laboratory Results
04/07/24 04/07/24 04/07/24
01:56 06:22 12:13
WBC 6.3 5.7 5.4
Hgb 10.1 L 9.9 L 10.3 L
Hct 30.5 L 28.1 L 30.5 L
Plt Count 165 151 173
Sodium 141
Potassium 4.1
Chloride 107
Carbon Dioxide 25
BUN 22 H
Creatinine 0.9
Glucose 91
Calcium 8.7
Total Bilirubin 0.5
AST 24
ALT 18
Alkaline Phosphatase 54
Vital Signs:
Vital Signs
Temp Pulse Resp BP Pulse Ox
98.4 F 76 16 107/67 98
04/07/24 10:44 04/07/24 10:44 04/07/24 10:44 04/07/24 10:44 04/07/24 10:44
I&O
04/06/24 04/07/24 04/08/24
06:59 06:59 06:59
Intake Total 150 / 150
Output Total 650 / 650
Balance -500 / -500
Review of Systems
-
History Source: Patient
All other systems: Not reviewed unless documented
Data Reviewed
-
Labs: Labs Reviewed by me
[2024-04-07 15:07] VITALS: BMI 22.6
[2024-04-07 15:22] VITALS: BP 110/63
[2024-04-07 17:58] LABS: Hematocrit 31.6 % (39.0-52.0); Hemoglobin 10.5 g/dL (13.0-18.0)
[2024-04-07 19:11] VITALS: BP 126/72
[2024-04-07 23:31] VITALS: BP 100/94
[2024-04-08] VITALS (11 sets, daily range): BP systolic 14–119; BP diastolic 51–66
[2024-04-08 06:25] LABS: Hematocrit 27.7 % (39.0-52.0); Hemoglobin 9.1 g/dL (13.0-18.0); Mean Corp Hgb Conc. 32.9 g/dL (33.0-37.0); Mean Corpuscular Hgb 30.7 pg (27.0-31.0); Mean Corpuscular Volume 93.6 fL (80.0-94.0); Mean Platelet Volume 10.8 fL (7.4-10.4); Platelet Count 164 10^3/uL (130-400); Red Blood Cell Count 2.96 10^6/uL (4.70-6.10); Red Cell Dist. Width 13.6 % (11.5-14.5); White Blood Cell Count 5.9 10^3/uL (4.8-10.8)
[2024-04-08 06:50] LABS: ALT (SGPT) 17 U/L (0-50); AST (SGOT) 19 U/L (17-59); Albumin 3.3 g/dl (3.5-5.0); Alkaline Phosphatase 56 U/L (38-126); Blood Urea Nitrogen 20 mg/dl (9-20); Calcium 8.5 mg/dl (8.4-10.2); Carbon Dioxide 27 mmol/L (22-30); Chloride 107 mmol/L (98-107); Estimated Creatinine Clearance 64 ml/min; Glucose 86 mg/dl (70-99); Potassium 4.2 mmol/L (3.5-5.1); Sodium 142 mmol/L (135-145); Total Bilirubin 0.3 mg/dl (0.2-1.3); Total Protein 5.1 g/dl (6.3-8.2); eGFR > 60.00
--- NOTE | 2024-04-08 13:00 | W.PN.HOSP.TC ---
Today's Communication/Plan
-
Colonoscopy today, monitor CBC
Assessment / Plan
Assessment / Plan
Physical Exam
General: Well Developed, Well Nourished, No Apparent Distress and Comfortable
HEENT: NormoCephalic, Anicteric, Moist mucous membranes and Atraumatic
Respiratory: Clear
Cardiac: S1/S2 and Regular Rhythm
Breast: Deferred by me
GI: Soft, Non Tender, Non Distended and Normal Bowel Sounds
Rectal: Red
Genito-urinary: Deferred by me
Musculoskeletal: No Clubbing, No Cyanosis and No Edema
Skin: Warm
Neuro: AO x 3
Hematologic/Lymphatic: No Lymphadenopathy
Psych: Calm
68-year-old with history of diverticular bleeding and hemorrhoids presents to the emergency department with 1 episode of bloody bowel movement. In the ED he was found to have nathan blood in the vault without any stool. Has been with diarrhea. No
signs of acute infection. Patient is not on any anticoagulants or antiplatelets. Had a history of diverticular bleed 6 months ago for which she presented at [facility] and required 7 units of blood transfusion and colonoscopy with placement
of clips.
PLAN:
1. Rectal bleeding - Given past history, suggest diverticular bleed.
-repeated occurrence this am
-monitor cbc q12h
-N.p.o., colonoscopy today
- type and screen
-Maintain MAP greater than 65
� Maintain hemoglobin greater than 7; transfuse as necessary
� 2 large IV bores
#HLD
DVT PPX - SCDs
Code Status - Full Code
Anticipated Discharge: Within 24 hours
Subjective/Interval History
-
Date of Service: April 08, 2024
GI prep with multiple bloody bowel movements, hemoglobin dropped to 9.1
Objective Data
-
Labs:
Laboratory Results
04/08/24
05:13
WBC 5.9
Hgb 9.1 L
Hct 27.7 L
Plt Count 164
Sodium 142
Potassium 4.2
Chloride 107
Carbon Dioxide 27
BUN 20
Creatinine 1.0
Glucose 86
Calcium 8.5
Total Bilirubin 0.3
AST 19
ALT 17
Alkaline Phosphatase 56
Vital Signs:
Vital Signs
Temp Pulse Resp BP Pulse Ox
98.0 F 101 16 109/59 100
04/08/24 11:28 04/08/24 11:28 04/08/24 11:28 04/08/24 11:28 04/08/24 11:28
I&O
04/07/24 04/08/24 04/09/24
06:59 06:59 06:59
Intake Total 150 / 150 2580 / 2580
Output Total 650 / 650 2325 / 2325
Balance -500 / -500 255 / 255
Review of Systems
-
History Source: Patient
All other systems: Not reviewed unless documented
Data Reviewed
-
Labs: Labs Reviewed by me
[2024-04-09 07:25] VITALS: BP 120/61
[2024-04-09 07:51] LABS: Hemoglobin 8.3 g/dL (13.0-18.0); Mean Corp Hgb Conc. 33.2 g/dL (33.0-37.0); Mean Corpuscular Hgb 31.2 pg (27.0-31.0); Mean Platelet Volume 11.1 fL (7.4-10.4); Platelet Count 161 10^3/uL (130-400); Red Blood Cell Count 2.66 10^6/uL (4.70-6.10); Red Cell Dist. Width 13.6 % (11.5-14.5); White Blood Cell Count 5.4 10^3/uL (4.8-10.8)
[2024-04-09 08:21] LABS: ALT (SGPT) 18 U/L (0-50); AST (SGOT) 23 U/L (17-59); Albumin 3.2 g/dl (3.5-5.0); Alkaline Phosphatase 54 U/L (38-126); Blood Urea Nitrogen 16 mg/dl (9-20); Calcium 8.6 mg/dl (8.4-10.2); Carbon Dioxide 26 mmol/L (22-30); Chloride 107 mmol/L (98-107); Estimated Creatinine Clearance 71 ml/min; Glucose 76 mg/dl (70-99); Potassium 4.3 mmol/L (3.5-5.1); Sodium 140 mmol/L (135-145); Total Bilirubin 0.3 mg/dl (0.2-1.3); eGFR > 60.00
[2024-04-09 08:34] VITALS: BP 120/61
[2024-04-09 11:20] VITALS: BP 124/76
--- NOTE | 2024-04-09 12:38 | W.PN.HOSP.TC ---
Today's Communication/Plan
-
as drop in Hgb 9.1-8.3 - cont H&H q8h and no advancing of the diet
If further Hgb stable and/or no hematochezia - d/c in the next 24h
Assessment / Plan
Assessment / Plan
68yo M with PMHx of HLD, Hx of GIB 2/2 diverticulosis came with rectal bleeding, colonoscopy on 04/08/24 showed Non-bleeding internal hemorrhoids, Diverticulosis in the entire examined colon,Large clot in ascending colon over a tic. Hemoclip placed.
Monitored for recurrent bleeding and Hgb stability
A/P:
#Lower GIB 2/2 diverticular bleed
Avoid antiplatelets, anticoagulation
Follow Hgb
GI consult
#HLD
cont Lipitor
DVT ppx SCDs
Full code
I have spent at least 38min reviewing chart, test results, communication with consultants and direct patient care
Anticipated Discharge: Within 24 hours
Subjective/Interval History
-
Date of Service: April 09, 2024
Objective Data
-
Labs:
Laboratory Results
04/09/24 04/09/24 04/09/24
06:06 13:00 21:00
WBC 5.4
Hgb 8.3 L Pending Pending
Hct 25.0 L Pending Pending
Plt Count 161
Sodium 140
Potassium 4.3
Chloride 107
Carbon Dioxide 26
BUN 16
Creatinine 0.9
Glucose 76
Calcium 8.6
Total Bilirubin 0.3
AST 23
ALT 18
Alkaline Phosphatase 54
Vital Signs:
Vital Signs
Temp Pulse Resp BP Pulse Ox
98.7 F 88 17 124/76 99
04/09/24 11:20 04/09/24 11:20 04/09/24 11:20 04/09/24 11:20 04/09/24 11:20
I&O
04/08/24 04/09/24 04/10/24
06:59 06:59 06:59
Intake Total 2580 / 2580 1575 / 1575
Output Total 2325 / 2325 325 / 325
Balance 255 / 255 1250 / 1250
Review of Systems
-
History Source: Patient
All other systems: Reviewed and negative
Physical Exam
-
General: No Apparent Distress
HEENT: Normocephalic
Respiratory: Clear to Auscultation
Cardiac: Regular Rhythm
GI: Soft, Nontender and Nondistended
Neuro: Awake, Alert, Oriented and AO x 3
Psych: Calm
[2024-04-09 13:28] LABS: Hematocrit 26.7 % (39.0-52.0); Hemoglobin 8.6 g/dL (13.0-18.0)
--- NOTE | 2024-04-09 14:22 | CM ---
Reviewed the chart notes and spoke with the patient at the bedside. CM continues to be available to patient/family and is monitoring medical plan for needs at discharge.
Plan: Discharge to home when medically stable. No needs anticipated.
--- NOTE | 2024-04-09 14:48 | PN.CDI ---
CDI
- -
CDI:
Physician Documentation Request
Admit Date: 04/06/24 02:28
Dear Doctor Eder,
Please review the following and provide your response in the progress notes.
Clinical Indicators:
Pt admitted with Lower GIB 2/2 diverticular bleed
Progress note 04/08, ' ...hemoglobin dropped to 9.1....'
Progress note 04/09, ' as drop in Hgb 9.1-8.3 - cont H&H q8h and no advancing of the diet If further Hgb stable and/or no hematochezia - d/c in the next 24h....'
04/06/24 04/06/24 04/06/24
00:29 05:34 13:58
Hgb 12.3 L 12.1 L 11.2 L
Hct 38.0 L 35.8 L
04/07/24 04/09/24 04/09/24
06:22 06:06 13:15
Hgb 9.9 L 8.3 L 8.6 L
Hct 28.1 L 25.0 L 26.7 L
Please Provide a diagnosis for the above laboratory findings/treatment :
Acute blood loss anemia
Drop in HGB only
Other ( please specify)
Use of terms such as suspected, likely, concern for, or probable (associated with a specific diagnosis that is being evaluated, monitored, or treated as if it exists) are acceptable and can be coded in the inpatient setting, when documented at the
time of discharge.
Thank you,
Jessica Palma RN
CDI Specialist
[place] [facility]
Please use your independent medical judgment in providing your response.
[2024-04-09 15:45] VITALS: BP 125/65
--- NOTE | 2024-04-09 16:31 | W.PN.GI.CBS2 ---
Today's Communication / Plan
-
Serial H/H
GI will sign off please call for ?
Assessment / Plan
-
68-year-old man with past medical history of hyperlipidemia, diverticular bleed (September 2023 [facility]) otherwise healthy presents to the emergency room last evening with episode of brown loose stools with bright red blood. Asked to evaluate
for the same. The patient states that he was hospitalized at [facility] in September 2023 after having episode of abdominal cramping with bright red blood. At that time he required multiple blood transfusions and colonoscopy performed at
that time that showed blood within the entire colon. Edema in the ileocecal valve that was biopsied. Inverted diverticula with possible bleeding stigmata that was clipped in the ascending colon. Moderate diverticulosis throughout the entire
colon. The patient states he was discharged and his hemoglobin was improved. He does not know the results of his hemoglobin after discharge. Patient has soft formed bowel movements daily without any issues with constipation. Rectal exam in the
ER was gross red blood. Rectal exam by me showed external and internal hemorrhoids. The external hemorrhoids had no stigmata of recent bleeding. Rectal exam did show some old blood within the rectal canal. He states that he had no episodes of
bleeding overnight or with wiping. Hemoglobin has remained completely stable. He has been tolerating clear liquid diet without any issues. He states his last colonoscopy was approximately 3 years ago in [facility]. He states he has never had
any polyps. He is no family history of gastrointestinal malignancy. He takes no NSAIDs. WBC 6.8, hemoglobin 12.1 (down from 12.3), hematocrit 35.8, platelets 175 PT 13.7 INR 1.0, sodium 141, potassium 4.9, BUN 22, creatinine 0.9, glucose 116 LFTs
within normal limits. No imaging.
Impression:
Rectal bleeding
Colonoscopy 04/08 with hematin in tics one area of clot hemoclipped.
Plan:
- Trend H/H
- Monitor stool outpt
- C/w CLD
- Results of colonoscopy d/w pt.
- If no further bleeding and H/H stable anticipate advancement to low residue diet tomorrow
- If further bleeding consider IR or colorectal consult
D/w patient and that no further endoscopic intervention is indicated
GI will sign off please call for ?
Subjective
Subjective
Date of Service: April 09, 2024
Passed dark BM today. No abd pain, N/V. bedside
Objective
Data Reviewed
Laboratory Data:
Laboratory Results
04/09/24 06:06
Laboratory Results
PT 13.7 Sec (11.4-14.6) 04/06/24 00:29
INR 1.00 04/06/24 00:29
APTT 31.1 Sec (23.4-35.0) 04/06/24 00:29
Total Bilirubin 0.3 mg/dl (0.2-1.3) 04/09/24 06:06
AST 23 U/L (17-59) 04/09/24 06:06
ALT 18 U/L (0-50) 04/09/24 06:06
Alkaline Phosphatase 54 U/L (38-126) 04/09/24 06:06
Vital Signs and I&O:
Vital Signs
Temp Pulse Resp BP Pulse Ox
99.7 F 88 17 125/65 100
04/09/24 15:45 04/09/24 15:45 04/09/24 15:45 04/09/24 15:45 04/09/24 15:45
I&O
04/08/24 04/09/24 04/10/24
06:59 06:59 06:59
Intake Total 2580 / 2580 1575 / 1575
Output Total 2325 / 2325 325 / 325
Balance 255 / 255 1250 / 1250
Physical Exam
Physical Exam
GEN: No acute distress, conversant, pleasant
HEENT: anicteric, extraocular movements intact, clear oropharynx without exudates
GI: soft, non-distended, not tender to palpation, normal active bowel sounds, no hepatosplenomegaly
EXT: warm, well perfused, no edema bilaterally
NEURO: AAOx3, non-focal
[2024-04-09 19:20] VITALS: BP 108/73
[2024-04-09 21:08] LABS: Hematocrit 24.5 % (39.0-52.0); Hemoglobin 8.5 g/dL (13.0-18.0)
[2024-04-09] MEDS: LIPITOR 10 MG PO (21:15)
[2024-04-09 23:36] VITALS: BP 112/65
[2024-04-10 03:05] VITALS: BP 100/59
[2024-04-10 07:25] VITALS: BP 118/68
[2024-04-10 07:34] LABS: Hematocrit 25.2 % (39.0-52.0); Hemoglobin 8.1 g/dL (13.0-18.0); Mean Corp Hgb Conc. 32.1 g/dL (33.0-37.0); Mean Corpuscular Hgb 30.1 pg (27.0-31.0); Mean Corpuscular Volume 93.7 fL (80.0-94.0); Mean Platelet Volume 10.8 fL (7.4-10.4); Platelet Count 187 10^3/uL (130-400); Red Blood Cell Count 2.69 10^6/uL (4.70-6.10); Red Cell Dist. Width 13.5 % (11.5-14.5); White Blood Cell Count 4.8 10^3/uL (4.8-10.8)
[2024-04-10 08:24] LABS: ALT (SGPT) 19 U/L (0-50); AST (SGOT) 23 U/L (17-59); Albumin 3.4 g/dl (3.5-5.0); Alkaline Phosphatase 56 U/L (38-126); Blood Urea Nitrogen 11 mg/dl (9-20); Carbon Dioxide 30 mmol/L (22-30); Chloride 105 mmol/L (98-107); Estimated Creatinine Clearance 64 ml/min; Glucose 94 mg/dl (70-99); Potassium 4.6 mmol/L (3.5-5.1); Sodium 141 mmol/L (135-145); Total Bilirubin 0.1 mg/dl (0.2-1.3); Total Protein 5.2 g/dl (6.3-8.2); eGFR > 60.00
--- NOTE | 2024-04-10 09:18 | W.PN.HOSP.TC ---
Today's Communication/Plan
-
dc
Assessment / Plan
Assessment / Plan
68yo M with PMHx of HLD, Hx of GIB 2/2 diverticulosis came with rectal bleeding, colonoscopy on 04/08/24 showed Non-bleeding internal hemorrhoids, Diverticulosis in the entire examined colon,Large clot in ascending colon over a tic. Hemoclip placed.
No hematochezia recurrence and Hgb remained stable on the day of d/c. Medically stable for d/c and instructed to monitor himself for symptoms: bleeding and dizziness.
A/P:
#Lower GIB 2/2 diverticular bleed
Avoid antiplatelets, anticoagulation
Follow Hgb
GI consult
#HLD
cont Lipitor
DVT ppx SCDs
Full code
I have spent at least 38min reviewing chart, test results, communication with consultants and direct patient care
Anticipated Discharge: Today
Subjective/Interval History
-
Date of Service: April 10, 2024
Objective Data
-
Labs:
Laboratory Results
04/10/24 04/10/24
06:27 13:00
WBC 4.8
Hgb 8.1 L Pending
Hct 25.2 L Pending
Plt Count 187
Sodium 141
Potassium 4.6
Chloride 105
Carbon Dioxide 30
BUN 11
Creatinine 1.0
Glucose 94
Calcium 9.0
Total Bilirubin 0.1 L
AST 23
ALT 19
Alkaline Phosphatase 56
Vital Signs:
Vital Signs
Temp Pulse Resp BP Pulse Ox
97.9 F 87 16 118/68 99
04/10/24 07:25 04/10/24 07:25 04/10/24 07:25 04/10/24 07:25 04/10/24 07:25
I&O
04/09/24 04/10/24 04/11/24
06:59 06:59 06:59
Intake Total 1575 / 1575 960 / 960
Output Total 325 / 325
Balance 1250 / 1250 958 / 958
Review of Systems
-
All other systems: Reviewed and negative
Constitutional: Reports No Symptoms
Physical Exam
-
Respiratory: Clear to Auscultation
Cardiac: Regular Rhythm
GI: Soft, Nontender, Nondistended and Normal Bowel Sounds
Neuro: Awake, Alert, Oriented and AO x 3
Psych: Calm
--- NOTE | 2024-04-10 09:25 | W.DCSUMMARY ---
Addendum entered and electronically signed by Sudarshan Gaines MD 04/10/24 09:25:
Acute blood loss anemia
Original Note:
Discharge Summary
Discharge Data
Date of Admission: 04/06/24
Date of Discharge: 04/10/24
-
Pending Results: No
Hospital Course
68yo M with PMHx of HLD, Hx of GIB 2/2 diverticulosis came with rectal bleeding, colonoscopy on 04/08/24 showed Non-bleeding internal hemorrhoids, Diverticulosis in the entire examined colon,Large clot in ascending colon over a tic. Hemoclip placed.
No hematochezia recurrence and Hgb remained stable on the day of d/c. Medically stable for d/c and instructed to monitor himself for symptoms: bleeding and dizziness.
I have spent at least 38min reviewing chart, test results, communication with consultants and direct patient care
Patient was managed for:
#Lower GIB 2/2 diverticular bleed
#HLD
Discharge Plan
-
Patient Disposition: Home (Routine Discharge)
Discharge Diagnosis/Procedures: Hematochezia
Diet: Low Residue
Activity: As tolerated
Driving Restrictions: As prior to admission
Referrals:
Mehnaz Kramer MD [Active] - (2-4 wks for diverticular bleeding)
UNKNOWN - PT DOES,NOT KNOW [Family Provider] -
Prescriptions:
Continued
atorvastatin [Lipitor] 10 mg Tablet
10 mg PO HS
Discharge Orders:
Discharge Patient (As Directed); Ordered 04/10/24
Ordered By: Sudarshan Gaines
Discharge Date and Time
Print Language: [place]
--- NOTE | 2024-04-10 09:46 | CM ---
Reviewed the chart notes and spoke with the patient at the bedside. IMM reviewed and placed on chart. The patient anticipates being discharged to home today. Patient's spouse will provide transportation home. CM continues to be available to
patient/family and is monitoring medical plan for needs at discharge.
Plan: Discharge to home today with no additional needs identified at this time.
[2024-04-10 11:05] VITALS: BP 108/46
== END 2024-04-10 11:57 | disposition home or self-care (01) | DRG 378 ==
LOC: 2 NORTH 02:28
PROVIDERS: Internal Medicine; Nurse Practitioner; Physician Assistant Medical; ADMITTING PHYSICIAN Internal Medicine; ATTENDING PHYSICIAN Internal Medicine; CONSULT PHYSICIAN Internal Medicine Gastroenterology; EMERGENCY PHYSICIAN Student in an Organized Health Care Education/Training Program
PROC: 0W3P8ZZ Control Bleeding in Gastrointestinal Tract, Via Natural or Artificial Opening Endoscopic (ICD-10-PCS; 2024-04-08)
DX: K57.31 Diverticulosis of large intestine without perforation or abscess with bleeding (principal); D62 Acute posthemorrhagic anemia; K64.8 Other hemorrhoids; E78.00 Pure hypercholesterolemia, unspecified
CPT/HCPCS: 80048; 80053; 82607; 82728; 82746; 83540; 83550; 85014; 85018; 85025; 85027; 85610; 85730; 86850; 86900; 86901; 99285

== ENCOUNTER 2024-06-19 20:11 | Observation (INO) | payer MEDICARE, OTHER, SELFPAY ==
[2024-06-19] VITALS (9 sets, daily range): BP systolic 116–147; BP diastolic 58–75; BMI 23.5; BMI 22.8
--- NOTE | 2024-06-19 12:23 | ED.GENMED ---
ED Provider Triage
<Hever Alexandra PA-C - Last Filed: 06/19/24 12:26>
-
Patient seen by provider in Triage?: Seen in Triage
Attestation: A medical screening examination has been initiated by a qualified medical provider. Based on the assessment performed at this time, it has been determined that an emergent medical condition may exist and the patient has been informed
that further medical evaluation and possible additional diagnostic testing may be needed.
HPI: 68-year-old male presents upon referral from colorectal surgery due to 5 days of bright red blood per rectum. Reports he is passing clots. Colorectal specialist requested CT angiogram on arrival to the ED. He is not on anticoagulants
GENERAL: Alert , in no apparent distress
EYE: No visual abnormalities.
NECK: Trachea midline
ENT: No visible abnormalities.
LUNGS: No acute respiratory distress
NEUROLOGICAL: Alert and oriented
SKIN: Skin intact. No visible changes.
MUSCULOSKELETAL: Moving extremities normally
PSYCH: Normal and appropriate interaction.
This is a medical evaluation conducted in person to initiate diagnostic evaluation and provide initial therapeutics. Please see further documentation by the treating clinician.
History of Present Illness
<Hever Alexandra PA-C - Last Filed: 06/19/24 12:26>
General
Chief Complaint: Rectal Bleeding
Time Seen by Provider: 06/19/24 14:50
<Claude Philip Jr., PA-C - Last Filed: 06/19/24 17:18>
General
Source: patient
Exam Limitations: none
Nursing documentation reviewed up to this point in time: agreed with
History of Present Illness
History of Present Illness:
68-year-old male with extensive history of GI bleeding mainly concerned to be secondary to diverticulosis over the past year or so. Follows with colorectal as well as GI. Was recently at [facility] and required multiple units of blood as
well as colonoscopy. Has had some bleeding over the past few days described as light red-brown stool. Patient is not on blood thinners. Was seen by colorectal today and sent to the ER to be admitted for further monitoring. He denies any
lightheadedness dizziness, chest pain shortness of breath no abdominal pain.
Past History
<Hever Alexandra PA-C - Last Filed: 06/19/24 12:26>
Past History
ED Past Medical History: Hypercholesterolemia and Other (Diverticulosis with previous diverticular bleed)
ED Past Surgical History: Other
Social History
Tobacco: Non-smoker
Alcohol: Occasional
Drug: None
Personal:
Living: with family
Review of Systems
<Claude Philip Jr., PA-C - Last Filed: 06/19/24 17:18>
Review of Systems
Allergies reviewed?: Yes
All Other Systems: ROS reviewed and negative except as documented in HPI and ROS
Phy Exam
<Claude Philip Jr., PA-C - Last Filed: 06/19/24 17:18>
Physical Exam
Physical Exam:
GENERAL: Alert , in no apparent distress
EYE: pupils equal and reactive
NECK: Supple, no significant adenopathy.
ENT: o/p clr, mmm.
CARDIAC: Regular rate and rhythm .
LUNGS: Clear breath sounds bilaterally, no acute respiratory distress, no wheezes/rales/rhonchi
ABDOMEN: Soft, without focal tenderness, no r/g, no cvat rectal examination red tinge guaiac positive
NEUROLOGICAL: Alert and oriented, no focal neuro deficits
SKIN: Warm and dry, skin intact.
MUSCULOSKELETAL: No edema, well perfused.
PSYCH: Normal and appropriate interaction.
Course
<Hever Alexandra PA-C - Last Filed: 06/19/24 12:26>
Orders/Labs/Results
Orders:
Orders
06/19/24 12:25
CT Angio Abd/Pelvis w/wo IV [CT Abd/pelvis Angio W/wo Iv] Urgent
Comment:
Reason For Exam: lower GI bleed
06/19/24 12:33
Type+Screen Urgent
Complete Blood Count/With Diff Urgent
Comprehensive Metabolic Panel Urgent
Lactic Acid Urgent
06/19/24 16:06
0.9% Sodium Chloride 1000 ml [Nss] 1,000 ml IV BOLUS
Abnormal Lab Results
06/19/24
12:33
RBC 3.45 L 10^6/uL
(4.70-6.10)
Hgb 9.7 L g/dL
(13.0-18.0)
Hct 30.2 L %
(39.0-52.0)
MCHC 32.1 L g/dL
(33.0-37.0)
RDW 14.7 H %
(11.5-14.5)
MPV 10.5 H fL
(7.4-10.4)
BUN 21 H mg/dl
(9-20)
Glucose 101 H mg/dl
(70-99)
06/19/24 12:33
06/19/24 12:33
Vital Signs
Initial and Last Documented VS:
Initial Vital Signs
Temp Pulse Resp BP Pulse Ox
97.9 F 87 16 116/62 99
06/19/24 12:24 06/19/24 12:24 06/19/24 12:24 06/19/24 12:24 06/19/24 12:24
Last Documented Vital Signs
Temp Pulse Resp BP Pulse Ox
97.9 F 78 11 126/70 99
06/19/24 12:24 06/19/24 15:00 06/19/24 15:00 06/19/24 14:52 06/19/24 12:24
<Claude Philip Jr., PA-C - Last Filed: 06/19/24 17:18>
Orders/Labs/Results
Orders:
Orders
06/19/24 12:25
CT Angio Abd/Pelvis w/wo IV [CT Abd/pelvis Angio W/wo Iv] Urgent
Comment:
Reason For Exam: lower GI bleed
06/19/24 12:33
Type+Screen Urgent
Complete Blood Count/With Diff Urgent
Comprehensive Metabolic Panel Urgent
Lactic Acid Urgent
06/19/24 16:06
0.9% Sodium Chloride 1000 ml [Nss] 1,000 ml IV BOLUS
Abnormal Lab Results
06/19/24
12:33
RBC 3.45 L 10^6/uL
(4.70-6.10)
Hgb 9.7 L g/dL
(13.0-18.0)
Hct 30.2 L %
(39.0-52.0)
MCHC 32.1 L g/dL
(33.0-37.0)
RDW 14.7 H %
(11.5-14.5)
MPV 10.5 H fL
(7.4-10.4)
BUN 21 H mg/dl
(9-20)
Glucose 101 H mg/dl
(70-99)
06/19/24 12:33
06/19/24 12:33
Vital Signs
Initial and Last Documented VS:
Initial Vital Signs
Temp Pulse Resp BP Pulse Ox
97.9 F 87 16 116/62 99
06/19/24 12:24 06/19/24 12:24 06/19/24 12:24 06/19/24 12:24 06/19/24 12:24
Last Documented Vital Signs
Temp Pulse Resp BP Pulse Ox
97.9 F 78 11 126/70 99
06/19/24 12:24 06/19/24 15:00 06/19/24 15:00 06/19/24 14:52 06/19/24 12:24
<Claude Philip Jr., PA-C - Last Filed: 06/19/24 17:18>
MDM/Problems Addressed
MDM/Problems Addressed:
5-year-old male presenting to the emergency department today with concerns of ongoing likely lower GI bleed. Here vital signs are normal patient no distress hemoglobin 9.7. Slight elevation of BUN to 21. CT angiogram was performed per
recommendation from colorectal that did not show any emergent findings. Plan to admit for further monitoring and assessment.
<Claude Philip Jr., PA-C - Last Filed: 06/19/24 17:18>
*Critical Care Note
Total Time (30-74mins, 75-104mins- exclusive of procedures): Not Applicable
ED Attending Note
<Hever Alexandra PA-C - Last Filed: 06/19/24 12:26>
-
Portions of this chart may have been created with voice recognition software.� Occasional wrong word or��sound alike� substitutions may have occurred due to the inherent limitations of voice recognition software.
Discharge Plan
Departure
Patient Disposition: Admit
Date of Disposition: 06/19/24
Time of Disposition: 17:16
Admit to: Med/Surg
Admit to doctor: [facility]
Presentation/result/management discussed w/ accepting MD/DO: Hospitalist
Patient with high blood pressure during this ER visit?: No
Condition: Good
Covid-19: Not Applicable
Discharge Problem:
Acute GI bleeding
Prescriptions:
No Action
atorvastatin [Lipitor] 10 mg Tablet
10 mg PO HS
Referrals:
Rickey Live MD [Family Provider] -
Interventions
Interventions:
*Risk Screen - Suicide Last Done: 06/19/24 12:24
*General Assessment Last Done: 06/19/24 12:24
*Neglect/Abuse Screening Last Done: 06/19/24 12:24
*ED COVID-19 Vaccine History Last Done: 06/19/24 14:52
MU-Pxwwxu-Plgbjcvhnb Assessment Last Done: 06/19/24 15:07
ED- Cardiac Assessment Last Done: 06/19/24 15:07
ED- Pulmonary Assessment Last Done: 06/19/24 15:07
Discharge Date and Time
Print Language: SRI LANKAN
[2024-06-19 12:59] LABS: % Basophils 0.5 % (0-2); % Eosinophils 0.8 % (0-6); % Immature Granulocytes 0.2 % (0-0.5); % Lymphocytes 22.2 % (20.5-51.1); % Monocytes 7.8 % (1.7-9.3); % Neutrophils 68.5 % (42.2-75.2); Absolute Eosinophils 0.1 10^3/uL (0-0.7); Absolute Lymphocytes 1.4 10^3/uL (1.2-3.4); Absolute Monocytes 0.5 10^3/uL (0.1-0.6); Absolute Neutrophils 4.3 10^3/uL (1.4-6.5); Hematocrit 30.2 % (39.0-52.0); Hemoglobin 9.7 g/dL (13.0-18.0); Mean Corp Hgb Conc. 32.1 g/dL (33.0-37.0); Mean Corpuscular Hgb 28.1 pg (27.0-31.0); Mean Corpuscular Volume 87.5 fL (80.0-94.0); Mean Platelet Volume 10.5 fL (7.4-10.4); Nucleated Red Blood Cells % 0 % (-); Platelet Count 222 10^3/uL (130-400); Red Blood Cell Count 3.45 10^6/uL (4.70-6.10); Red Cell Dist. Width 14.7 % (11.5-14.5); White Blood Cell Count 6.3 10^3/uL (4.8-10.8)
[2024-06-19 13:10] LABS: ALT (SGPT) 17 U/L (0-50); AST (SGOT) 23 U/L (17-59); Albumin 4.6 g/dl (3.5-5.0); Alkaline Phosphatase 75 U/L (38-126); Blood Urea Nitrogen 21 mg/dl (9-20); Calcium 8.9 mg/dl (8.4-10.2); Carbon Dioxide 27 mmol/L (22-30); Chloride 103 mmol/L (98-107); Glucose 101 mg/dl (70-99); Potassium 4.4 mmol/L (3.5-5.1); Sodium 138 mmol/L (135-145); Total Bilirubin 0.3 mg/dl (0.2-1.3); Total Protein 6.8 g/dl (6.3-8.2); eGFR > 60.00
[2024-06-19 13:12] LABS: Lactic Acid 0.9 mmol/L (0.7-2.0)
[2024-06-19] MEDS: NSS 1000 IV (16:31)
--- NOTE | 2024-06-19 19:02 | HPS.HSE ---
Addendum entered and electronically signed by Dorota Jean-Baptiste DO 06/20/24 00:07:
The patient is seen and examined. I have reviewed the patient with [employer], Diane, and reviewed and agree with her history and physical, assessment and plan of care as per below.
Currently VSS, AF, no active rectal bleeding nor melena at this time (had an episode this morning and showed pictures of large amount of black stool with blood-tinged toilet water)
Hgb stable 9.7 and 9.2
CV RRR, no m/r/g
Lungs CTA b/l no w/r/r
Abd soft, nt/nd normal bs
Labs reviewed
See below assessment and POC for full details
#Concern is for acute blood loss anemia from GI bleed, history of large 7 u PRBC transfusion September 2023 at [place], due to diverticular bleed
-CTA a/p without evidence for active GI bleed
-serial H & H
-GI and Colorectal cx appreciated
-NPO
Original Note:
Family Physician
-
Family Physician: Rickey Live MD
Chief Complaint
-
Dark black stool with bright red x 5 episodes
History of Present Illness
68-year-old male who has been complaining of rectal bleeding that started on Tuesday 1-2 episodes he reports black stool when it hits the toilet bowl becomes red in color . He states Tuesday he had additional 1-2 episodes then today large amount of
very dark black stool with bright red in the toilet and some mild left lower quadrant abdominal discomfort. He was seen today by colorectal sent to ER for evaluation including CT angio given history of diverticular bleed requiring multiple units of
blood at [place] in September of 2023. He was also treated in March by Dr. Mehnaz Rodgers for pandiverticulosis with large clot in the right colon over a diverticulum that was clipped. He denies any dyspepsia, fever, chills, chest pain, dizziness,
palpitations, cough, shortness of breath, nausea, vomiting, diarrhea, urinary difficulty or symptoms. He had a CT angio of the abdomen and pelvis in the ER with no acute bleed however showing moderate fecal material throughout the colon, mild
diverticulosis, moderate BPH and mild diffuse bladder wall thickening. Other past medical history includes HLD, alcohol use drinks 5 glasses of wine weekly, diverticular bleed September 2023 [facility] requiring multiple transfusions, March
2023 pandiverticulosis right colon diverticulum clipping.
Medical History
Past Medical History
Past Medical History: Reports Hypercholesterolemia and Other (Diverticulosis, diverticular bleeding September 2023 [place] [facility] requiring multiple transfusions)
Past Surgical History: Reports Other (Bilateral hernia repairs)
Social History
Tobacco: Non-smoker
Alcohol: Occasional (5 days a week drinks 6 ounce wine)
Drug: None
Personal:
Living: With Family
Employment: Retired
Family History
Family History: Not pertinent and Other (Mother history of diverticulosis/diverticulitis age 86 after a fall with hip fracture, father age 94 pneumonia history of BPH, 1 brother healthy)
Allergies / Home Medications
Allergies reflects when Allergies were last updated in [facility].
Home Medications with original date entered in [facility]
Allergy/Medication List:
Allergies
Allergy/AdvReac Type Severity Reaction Status Date / Time
aspirin Allergy Unknown Verified 06/19/24 12:27
Home Medications
atorvastatin 10 mg tablet (Lipitor) 10 mg PO HS High Cholesterol 04/06/24
Review of Systems
-
History Source: Patient
A 12 point ROS was completed and negative except as noted: Yes
Constitutional: Denies Fever, Fatigue or Chills
EENT: Denies Sore Throat or Runny Nose
Respiratory: Denies Cough or Trouble Breathing
Cardiac: Denies Chest Pain, Diaphoresis, Palpitations or Syncope
Abdomen/GI: Reports Abdominal Pain (Left lower quadrant) and Black Stools (With bright red blood in toilet); Denies Nausea, Vomiting, Diarrhea or Constipated
: Denies Dysuria, Frequency, Flank Pain, Incontinence, Difficulty Voiding, Urgency, Bleeding or Dark Urine
Musculoskeletal: Denies Joint Pain or Edema
Skin: Denies Itching or Rash
Neurological: Denies Dizzy, Headache or Weakness
Endocrine: Reports No Symptoms
Hematologic/Lymphatic: Reports No Symptoms
Psych: Reports Calm
Physical Exam
Vital Signs
Vital Signs
Temp Pulse Resp BP Pulse Ox
97.9 F 78 11 126/70 99
06/19/24 12:24 06/19/24 15:00 06/19/24 15:00 06/19/24 14:52 06/19/24 12:24
Physical Exam
General: Comfortable and Conversant; No Pain, Fever or Chills
HEENT: NormoCephalic, Anicteric, Moist mucous membranes, PERRLA, [place] Conjunctivae and No Ptosis
Respiratory: Clear; No Wheezes, Rales or Rhonchi
Cardiac: S1/S2 and Regular Rhythm; No Murmur, Rub, Gallop or Peripheral Edema
Breast: Deferred by me
GI: Soft and Tender
Rectal: Hem Positive (Jet black stool on patient's phone surrounded by bloody red toilet bowl water, ER exam red-tinged guaiac positive)
Genito-urinary: Deferred by me
Musculoskeletal: No Clubbing, No Cyanosis and No Edema
Skin: Warm and Dry; No Rash
Neuro: AO x 3, No Motor Deficits, Nonfocal/grossly intact, Cranial Nerves Intact and No Sensory Deficits; No Slurred Speech, Facial Droop, Tremors or Sedated
Psych: Calm
Laboratory Results
-
06/19/24 12:33
06/19/24 12:33
Laboratory Results
Lactic Acid 0.9 mmol/L (0.7-2.0) 06/19/24 12:33
Total Bilirubin 0.3 mg/dl (0.2-1.3) 06/19/24 12:33
AST 23 U/L (17-59) 06/19/24 12:33
ALT 17 U/L (0-50) 06/19/24 12:33
Alkaline Phosphatase 75 U/L (38-126) 06/19/24 12:33
Impression/Plan
-
Impression/plan:
Admit to telemetry
# GI bleed with Black stool and bright red blood per rectum
#History of diverticular bleed September 2023 [place] requiring 7 units of blood transfusion
#History of pandiverticulosis with right colon diverticular bleed clipping March [address] Mehnaz Kramer
Hgb 9.7 > 8.1 04/10/2024
-Consult GI
-Consult colorectal surgery-Dr. Adkins made aware
-Type and screen, blood consent obtained by emergency room
-N.p.o. except sips of clears and ice chips
-Follow H&H every 6 hours
-Monitor for any bloody bowel movements
-Follow CBC, BMP
CT abdomen pelvis angio with without:
1. No acute pathology of the abdomen and pelvis notified. No evidence of GI bleed.
2. Moderate fecal material throughout the colon.
3.Mild diverticulosis.
4.Moderate prostate hypertrophy.
5. Small left parapelvic renal cysts. Too small to characterize hypodense left renal lesions likely benign cysts
6. Mild diffuse bladder wall thickening. This can be seen with cystitis or bladder outlet obstruction.
#Alcohol use
Patient drinks 5 glasses 6 ounce wine weekly last drink was 4 days ago
#Moderate prostate hypertrophy
#Mild diffuse bladder wall thickening concern for bladder outlet obstruction
-Bladder scan with protocol
-Advised patient to follow-up with urology as outpatient to monitor his prostate and bladder wall thickening patient currently denies any difficulty with urination
#HLD
-Continue Lipitor 10 mg at bedtime
DVT prophylaxis
SCDs
Full code
[2024-06-19] MEDS: LIPITOR 10 MG PO (21:36)
[2024-06-19 21:59] LABS: Hematocrit 28.8 % (39.0-52.0); Hemoglobin 9.2 g/dL (13.0-18.0)
[2024-06-20] MEDS: PROTONIX IV 40 MG IV ×2 (00:14→07:56)
[2024-06-20] MEDS: NSS (PRESERVATIVE FREE) 10 ML IV ×2 (00:14→07:57)
[2024-06-20 04:22] VITALS: BMI 22.4
[2024-06-20 04:37] LABS: % Basophils 0.5 % (0-2); % Eosinophils 1.5 % (0-6); % Immature Granulocytes 0.3 % (0-0.5); % Lymphocytes 28.7 % (20.5-51.1); % Monocytes 10.8 % (1.7-9.3); % Neutrophils 58.2 % (42.2-75.2); Absolute Eosinophils 0.1 10^3/uL (0-0.7); Absolute Lymphocytes 1.8 10^3/uL (1.2-3.4); Absolute Monocytes 0.7 10^3/uL (0.1-0.6); Absolute Neutrophils 3.6 10^3/uL (1.4-6.5); Hemoglobin 9.3 g/dL (13.0-18.0); Mean Corp Hgb Conc. 32.1 g/dL (33.0-37.0); Mean Corpuscular Hgb 27.9 pg (27.0-31.0); Mean Corpuscular Volume 87.1 fL (80.0-94.0); Mean Platelet Volume 10.5 fL (7.4-10.4); Nucleated Red Blood Cells % 0 % (-); Platelet Count 201 10^3/uL (130-400); Red Blood Cell Count 3.33 10^6/uL (4.70-6.10); Red Cell Dist. Width 14.5 % (11.5-14.5); White Blood Cell Count 6.1 10^3/uL (4.8-10.8)
--- NOTE | 2024-06-20 06:46 | CON.GI ---
Addendum entered and electronically signed by Geraldo Altamirano MD 06/20/24 12:53:
Patient seen and examined, agree with nurse practitioner note. Patient is a 68-year-old male with past medical history as noted who returns with recurrent bleeding. He states that this episode was similar to his previous episodes, with clot and
red blood, though much lower volume. He denies any lightheadedness or dizziness, abdominal pain, fever or chills. He has had 2 colonoscopies over the past 2 years with recurrent bleeding, both with probable bleeding in the right colon, at the
hepatic flexure and ascending colon. CT angiogram here is negative though previously was positive at the [place] flexure. On exam he has no tenderness. His hemoglobin is slightly lower than admission though was higher than his previous discharge.
He said no further bowel movements and remains hemodynamically stable. At this point we will hold on further GI evaluation. If recurrent brisk active bleeding could check other bleeding study, though clinically has been stable and improving,
tolerating clear liquid diet. Surgery is following. Diagnostically no role for colonoscopy as he has had 2 colonoscopies in the last year and other etiologies including malignancy are excluded. If he remains stable and hemoglobin remained stable
then is okay to DC later today from a GI standpoint.
Original Note:
Consultation
-
Date/Time Consultation Requested: 06/19/241944
Date/Time Consultation Performed: 06/20/24929
Requesting Provider: JESSY Gudino
Performing Provider: JESSY Luna, Vincenzo Altamirano MD
Reason for Consultation: GI bleed
Medical History
Chief Complaint / HPI
Chief Complaint: Rectal bleed
History of Present Illness:
68-year-old man with past medical history of hyperlipidemia, diverticular bleed September 2023 [facility] requiring multiple transfusion with initial neg CTA but repeat with + extravasation at hepatic flexure with neg angio. Colonoscopy at that
time with blood throughout with possible bleeding in inverted diverticulum with clip placed. Edema IC valve bx neg. He then had admission March 2024 at with recurrent bleeding. During that admission pt completed colonoscopy with Dr. Kramer
04/08 with noted non bleeding internal hemorrhoids, diverticulosis, large clot in ascending colon over tic and hemoclip placed. During admission hbg was 12.3 on admit with drop to 8.1. He now returns 06/19 with referral from colorectal surgery with
several days of rectal bleeding with passing dark stool with clots and red blood around stool. On arrival he completed CTA with no acute pathology with no evidence for GI bleed, moderate stool in colon, diverticulosis, prostate hypertrophy, renal
cyst and bladder wall thickening with cystitis or bladder outlet obstruction. hbg stable 9 range during admission. BUN 21.
In review with patient this episode much less blood than first episode and no bleeding last 24 hours. He admits to some mild crampy pain prior to BM that is now improved but no constant pain. No other GI issue with odynophagia, dysphagia, GERD,
nausea, vomiting, chronic diarrhea or constipation. Pt is on fiber daily with healthy diet. No hx excessive bleeding or clotting issues. Hx hernia repair with no excessive bleeding in past. Denies dizziness or lightheadedness. No NSAID or
anticoagulation use.
colonoscopy- [place] 09/2023 clotted blood in whole colon worse in sigmoid ans past 45cm distally unable to clear multiple non bleeding diverticulum in entire colon with moderate to severe diverticulosis inverted diverticulum with possible bleeding
in ascending and clip placed. Edema in IC valve bx IC valve mild inflammation and non specific
Past Medical History
Past Medical History: Hypercholesterolemia and Other (Lower GI bleed (09/2023) diverticular bleed, diverticulosis prostate hypertrophy and renal cyst per imaging)
Past Surgical History: Other (Bilateral hernia repair)
Social History
Tobacco: Non-Smoker
Alcohol: Occasional (4-5 alcoholic beverages a week)
Drug: None
Personal:
Living: With Family
Employment: Retired
Family History
Family History: Other (No family history gastrointestinal malignancy or IBD, mother with diverticulosis )
Allergies / Home Medications
Allergy/AdvReac Type Severity Reaction Status Date / Time
aspirin Allergy Unknown Verified 06/19/24 12:27
�Medication �Instructions �Recorded
atorvastatin 10 mg tablet (Lipitor) 10 mg PO HS High Cholesterol 04/06/24
Review of Systems
-
History Source: Patient
Constitutional: Reports No Symptoms
EENT: Reports No Symptoms
Respiratory: Reports No Symptoms
Abdomen/GI: Reports Bloody Stools (dark stool with blood around)
: Reports No Symptoms
Musculoskeletal: Reports No Symptoms
Skin: Reports No Symptoms
Neurological: Reports No Symptoms
Endocrine: Reports No Symptoms
Hematologic/Lymphatic: Reports Bleeding
Vital Signs
Temp Pulse Resp BP Pulse Ox
98.3 F 77 18 125/66 98
06/19/24 23:00 06/19/24 23:00 06/19/24 23:00 06/19/24 23:00 06/19/24 23:00
Physical Exam
Exam
General: Well Developed, Well Nourished and No Apparent Distress
HEENT: Normocephalic and Anicteric
Respiratory: Clear
Cardiac: Regular Rhythm
GI: Soft, Non Tender and Non Distended
Musculoskeletal: No Clubbing and No Cyanosis
Skin: Warm and Dry
Neuro: Awake, Alert and AO x 3
Psych: Calm
Results
WBC 6.1 10^3/uL (4.8-10.8) 06/20/24 04:21
Hgb Cancelled 06/20/24 20:30
Hct Cancelled 06/20/24 20:30
MCV 87.1 fL (80.0-94.0) 06/20/24 04:21
Plt Count 201 10^3/uL (130-400) 06/20/24 04:21
Absolute Neuts (auto) 3.6 10^3/uL (1.4-6.5) 06/20/24 04:21
Sodium 138 mmol/L (135-145) 06/19/24 12:33
Potassium 4.4 mmol/L (3.5-5.1) 06/19/24 12:33
Chloride 103 mmol/L (98-107) 06/19/24 12:33
Carbon Dioxide 27 mmol/L (22-30) 06/19/24 12:33
BUN 21 mg/dl (9-20) H 06/19/24 12:33
Creatinine 1.0 mg/dL (0.7-1.3) 06/19/24 12:
Calcium 8.9 mg/dl (8.4-10.2) 06/19/24 12:
Total Bilirubin 0.3 mg/dl (0.2-1.3) 06/19/24 12:
AST 23 U/L (17-59) 06/19/24 12:33
ALT 17 U/L (0-50) 06/19/24 12:33
Alkaline Phosphatase 75 U/L (38-126) 06/19/24 12:33
Diagnostic Image Results:
06/19/24 CT Abd/pelvis Angio W/wo Iv
No acute pathology of the abdomen and pelvis notified. No evidence of GI bleed.
Moderate fecal material throughout the colon.
Mild diverticulosis.
Moderate prostate hypertrophy.
Small left parapelvic renal cysts. Too small to characterize hypodense left renal lesions likely benign cysts
Mild diffuse bladder wall thickening. This can be seen with cystitis or bladder outlet obstruction.
09/2023 initial neg CTA then + hepatic flexure at [place]
09/2023 IR ateriogram SMA and MCA no active extravasation- [place]
Prior GI Procedures:
EGD: none
Colonoscopy: 04/08 Dr. Kramer - Non-bleeding internal hemorrhoids.
- Diverticulosis in the entire examined colon.
- Large clot in ascending colon over a tic. Hemoclip
placed.
- The examined portion of the ileum was normal.
- No specimens collected.
colonoscopy- [place] 09/2023 clotted blood in whole colon worse in sigmoid ans past 45cm distally unable to clear multiple non bleeding diverticulum in entire colon with moderate to severe diverticulosis inverted diverticulum with possible bleeding
in ascending and clip placed. Edema in IC valve bx IC valve mild inflammation and non specific
Assessment / Plan
-
68-year-old man with past medical history of hyperlipidemia, diverticular bleed September 2023 [facility] requiring multiple transfusion with initial neg CTA but repeat with + extravasation at hepatic flexure with neg angio . Colonoscopy at
that time with blood throughout with possible bleeding in inverted diverticulum with clip placed. Edema IC valve bx neg. He then had admission in March 2024 to with recurrent bleeding. During that admission pt completed colonoscopy with
Dr. Kramer 04/08 with noted non bleeding internal hemorrhoids, diverticulosis, large clot in ascending colon over tic and hemoclip placed. During admission hbg was 12.3 on admit with drop to 8.1. He now returns 06/19 with referral from colorectal
surgery with several days of rectal bleeding with passing dark stool with clots and red blood around stool. On arrival he completed CTA with no acute pathology with no evidence for GI bleed, moderate stool in colon, diverticulosis, prostate
hypertrophy, renal cyst and bladder wall thickening with cystitis or bladder outlet obstruction. hbg stable 9 range during admission. BUN 21. Pt is on fiber daily with healthy diet. No hx excessive bleeding or clotting issues. Hx hernia repair
with no excessive bleeding in past. Denies dizziness or lightheadedness. No NSAID or anticoagulation use.
-recurrent diverticular bleed
--- 09/2023 [place] initial neg CTA then + hepatic flexure - colon with blood throughout and clip placed inverted diverticulum
---03/2024 - no CTA- colon with clot in AC with tic and clip placed
---06/2024 - smaller amount of bleed CTA neg
-hx hernia repair
-hyperlipidemia
PLAN:
etiology of bleeding with concern for recurrent diverticular bleeding
trend hbg and stool records last stool 24 + hours ago
ok for clear diet consider advance later
pt asking about discharged
discussed other options of EGD with minimal BUN elevation no NSAID use so less likely upper vs SB bleeding
pt also asked about surgery but noted with jordan diverticulosis on both colonoscopies
if discharged today discussed need to return for any recurrent bleeding
-
-
Thank you for consultation and allowing me to participate in the patient's care. Please call the deportation officer GI physician during the after hours with any questions or concerns.
[2024-06-20 07:00] VITALS: BP 103/59
--- NOTE | 2024-06-20 10:40 | CON.CRS ---
Consultation
-
Date/Time Consultation Requested: 06/20/2024, 19:45
Date/Time Consultation Performed: 06/20/2024, 08:30
Requesting Provider: Diane Willis
Performing Provider: Edilberto Martin MD
Reason for Consultation: rectal bleeding
Medical History
-
Chief Complaint: rectal bleeding
History of Present Illness:
68-year-old male presents to the ER from the recommendation of Dr. Juárez after being seen in the clinic earlier that day. The patient has a history of a GI bleed and had an active lower GI bleed in September 2023 that led to an admission at [facility] for several days. He ultimately received 7 units of packed red blood cells. He also underwent 2 CTAs but is unsure the results. Then he underwent a angiography/catheterization which was negative. The records are not available for review
but is told by the patient. His last colonoscopy was on 09/21/[address] Jauregui. The report was available for review and shows blood throughout the colon especially in the sigmoid area along with pandiverticulosis. There was an inverted diverticulum
with questionable stigmata of bleeding in the right colon that was clipped. The patient had a lower GI bleed leading to admission at [facility] in March 2024. Dr. Rodgers performed a colonoscopy during that admission which showed
pandiverticulosis within normal terminal ileum. There was a large clot in the ascending colon over a large diverticulum which was clipped.
Ultimately the patient had been doing well up until 5 days ago when he started having rectal bleeding. He has photographs of blood clots that were in the toilet. Given persistence of bleeding in the office, it was recommended he go to the
emergency department by Dr. Juárez. On admission his hemoglobin is 9.7. Today it is 8.6. His vitals have remained normal. Since admission he no longer has any bloody bowel movements. CT of the abdomen and pelvis showed no acute pathology of the
abdomen and pelvis. No evidence of a GI bleed. He denies any chest pain or shortness of breath. He has had no change in his bowel movements. He denies rectal pain. He has no issues with urination. We have been consulted for further surgical
opinion.
Past Medical History
Past Medical History: Other (Hyperlipidemia, diverticular bleed, diverticulosis, enlarged prostate, renal cyst)
Past Surgical History: Other (Bilateral hernia repair)
Social History
Alcohol: Occasional
Drug: None
Personal:
Family History
Family History: Reviewed & Not Pertinent
Allergies / Home Medications
Allergy/AdvReac Type Severity Reaction Status Date / Time
aspirin Allergy Unknown Verified 06/19/24 12:27
�Medication �Instructions �Recorded �Confirmed �Type
atorvastatin 10 mg tablet (Lipitor) 10 mg PO HS High Cholesterol 04/06/24 04/06/24 History
Review of Systems
-
History Source: Patient
All other systems: Negative unless noted
Abdomen/GI: Bloody Stools
A 10 point review of systems was completed, and was negative except as per HPI.
Physical Exam
Vital Signs
Temp 98.1 F 06/20/24 07:00
Pulse 85 06/20/24 07:00
Resp Rate 16 06/20/24 07:00
Blood pressure 103/59 06/20/24 07:00
SaO2 98 06/20/24 07:00
06/19/24 06/20/24 06/21/24
06:59 06:59 06:59
Actual Weight 64.92 kg
Body Mass Index (BMI) 22.4
Lab Results / Allergies
06/19/24 12:33
WBC 6.1 10^3/uL (4.8-10.8) 06/20/24 04:21
Hgb Cancelled 06/20/24 20:30
Hct Cancelled 06/20/24 20:30
Plt Count 201 10^3/uL (130-400) 06/20/24 04:21
Abs Immat Gran (auto) 0.0 10^3/uL (0-0.05) 06/20/24 04:21
Neutrophils % 58.2 % (42.2-75.2) 06/20/24 04:21
Allergy/AdvReac Type Severity Reaction Status Date / Time
aspirin Allergy Unknown Verified 06/19/24 12:27
Physical Exam
General: Well Developed, Well Nourished and No Apparent Distress
GI: Soft, Non Tender and Non Distended
Neuro: AO x 3
Psych: Calm
Data Reviewed
-
CT Scan: Image Personally Visualized and interpreted, Report Reviewed by me and Discussed with Patient
Labs: Labs Reviewed by me, Discussed with Physician and Discussed with Patient
Old Records: Reviewed
Assessment / Plan
-
Assessment: 68-year-old male with a prior past medical history of diverticular bleeding x 2 presents from the clinic to the ER complaining of a few days of clotting rectal bleeding, CT abdomen and pelvis negative
Plan:
-No plans for surgery at this time
-Appreciate GI consult
-Trend hemoglobin
-On clears per GI with possible advancement later
[2024-06-20 11:30] LABS: Hematocrit 26.7 % (39.0-52.0); Hemoglobin 8.6 g/dL (13.0-18.0)
--- NOTE | 2024-06-20 13:41 | W.PN.HOSP.TC ---
Today's Communication/Plan
-
Trial on regular diet
Discharge with OP CBC in a week
Close follow-up with GI and colorectal (referrals provided if needed)
Assessment / Plan
Assessment / Plan
#Melanic stools
#History of diverticular bleed September 2023 [place] requiring 7 units PRBC
#History of pandiverticulosis with right colon s/p diverticular bleed clipping March [address] Mehnaz Kramer
-Hemoglobin at 8.1 near time of discharge on recent hospitalization and March
-Hemoglobin trend here 9.7�9.2�9.3�8.6; has not had recurrence of dark stools or noted bleeding
-Patient has had 2 colonoscopies within the last year, no signs of malignancy
Plan
-Evaluated by colorectal surgery and GI today, no plans for EGD or colonoscopy
-Told him to return to ED if he noted recurrence of melena or new bright red blood present
-Advised him to follow-up with PCP, GI, colorectal surgeon (as needed referrals provided)
-Cautioned him on iron supplement and Pepto-Bismol as causes for pseudo melena
-Will discharge patient with CBC in 1 week
-Encourage high-fiber diet
#Alcohol use
-Patient drinks 5 glasses 6 ounce wine weekly last drink was 4 days ago
#Moderate prostate hypertrophy
#Mild diffuse bladder wall thickening concern for bladder outlet obstruction
-Bladder scan with protocol
-Advised patient to follow-up with urology as outpatient to monitor his prostate and bladder wall thickening
-patient currently denies any difficulty with urination
#HLD
-No known ASCVD history
-Continue Lipitor 10 mg at bedtime
Regular diet
SCDs
Full code
Anticipated Discharge: Today
Subjective/Interval History
-
Date of Service: June 20, 2024
Seen and examined at the bedside. No acute events reported overnight. AFVSS as of this morning.
Hemoglobin stable and above baseline from most recent hospital stay
He denies any new complaints today. States he feels well and would like to be discharged to possible
Objective Data
-
Labs:
Laboratory Results
06/20/24 06/20/24 06/20/24
02:30 04:21 04:21
WBC 6.1
Hgb Cancelled 9.3 L Cancelled
Hct Cancelled 29.0 L
Plt Count
06/20/24 06/20/24 06/20/24
04:21 08:30 11:23
WBC
Hgb Cancelled 8.6 L
Hct Cancelled Cancelled 26.7 L
Plt Count 201
06/20/24 06/20/24 06/20/24
14:30 16:00 20:30
WBC
Hgb Cancelled Pending Cancelled
Hct Cancelled Pending Cancelled
Plt Count
06/20/24
22:00
WBC
Hgb Pending
Hct Pending
Plt Count
Vital Signs:
Vital Signs
Temp Pulse Resp BP Pulse Ox
98.1 F 85 16 103/59 98
06/20/24 07:00 06/20/24 07:00 06/20/24 07:00 06/20/24 07:00 06/20/24 07:00
I&O
06/19/24 06/20/24 06/21/24
06:59 06:59 06:59
Intake Total 200 / 200
Balance 200 / 200
Review of Systems
-
History Source: Patient
All other systems: Reviewed and negative
Physical Exam
-
General: Well Developed, Well Nourished, No Apparent Distress and Comfortable
HEENT: Normocephalic, Atraumatic and Moist Mucous Membranes
Respiratory: Clear to Auscultation and Non Labored Respirations
Cardiac: Regular Rhythm and S1/S2; Negative Murmur, Rub or Gallop
GI: Soft, Nontender, Nondistended and Normal Bowel Sounds
Musculoskeletal: No Clubbing, No Cyanosis and No Edema
Skin: Warm, Dry and Normal Turgor; Negative Rash
Neuro: AO x 3 and Nonfocal/Grossly Intact
Psych: Calm
Data Reviewed
-
Labs: Labs Reviewed by me, Discussed with Physician (GI, colorectal) and Discussed with Patient
--- NOTE | 2024-06-20 14:14 | CM ---
Patient seen bedside.
IA completed.
Patient lives with spouse in 2 story home, independent prior to admission.
Patient denies home care needs.
[facility] completed.
PCP and pharmacy verified.
Plan home no needs.
[2024-06-20 14:36] VITALS: BP 124/64
== END 2024-06-20 14:39 | disposition home or self-care (01) ==
LOC: 1 ACUTE 20:11
PROVIDERS: Clinical Nurse Specialist Family Health; Physician Assistant; ADMITTING PHYSICIAN Internal Medicine; ATTENDING PHYSICIAN Internal Medicine; CONSULT PHYSICIAN Internal Medicine Gastroenterology; EMERGENCY PHYSICIAN Emergency Medicine; FAMILY PHYSICIAN Internal Medicine; OTHER PHYSICIAN Surgery
DX: K92.1 Melena (principal); K57.30 Diverticulosis of large intestine without perforation or abscess without bleeding; E78.00 Pure hypercholesterolemia, unspecified; R79.89 Other specified abnormal findings of blood chemistry; N40.0 Benign prostatic hyperplasia without lower urinary tract symptoms; E78.5 Hyperlipidemia, unspecified; N28.1 Cyst of kidney, acquired; F10.90 Alcohol use, unspecified, uncomplicated; R60.9 Edema, unspecified; Z88.6 Allergy status to analgesic agent; Z60.2 Problems related to living alone
CPT/HCPCS: 74174; 80053; 83605; 85014; 85018; 85025; 86850; 86900; 86901; 96360; 99285; Q9967